=== PATIENT | male | born 1955 | race Two or more races ===

== ENCOUNTER 2021-08-26 04:32 | Emergency (ER) | payer MEDICARE, OTHER ==
[~2021-08-26] VITALS: Ht 188 cm; Wt 95.5 kg
--- NOTE | 2021-08-26 05:33 | NUR ---
Pt pink, no acute/resp distress. Bed in lowest position, wheels locked, rail 2/2 up. Call junior in reach. Will continue to monitor for acute changes and needs.
--- NOTE | 2021-08-26 06:09 | NUR ---
Blood drawn from right a/c 21G butterfly needle. Pt juan luis well remained pink. Family at bedside. Bed in lowest position. Rail 2/2 up, wheels locked. Pt pink, alert, no acute/resp distress. Handoff report to dayshift RN.
--- NOTE | 2021-08-26 06:20 | NUR ---
Report from BABATUNDE Barker.
[2021-08-26 06:27] LABS: BASOPHILS % (AUTO) 0.4 % (0-1); EOSINOPHILS # (AUTO) 0.1 X10'3 (0-0.9); HEMOGLOBIN 14.4 g/dl (14.0-17.9); LYMPHOCYTES # (AUTO) 1.1 X10'3 (1.1-4.8); LYMPHOCYTES % (AUTO) 18.5 % (21-51); MEAN CORPUSCULAR HEMOGLOBIN 30.2 PG (27.0-31.0); MEAN CORPUSCULAR HGB CONC 33.4 g/dL (33.0-36.5); MEAN CORPUSCULAR VOLUME 90.6 FL (78-98); MEAN PLATELET VOLUME 8.8 FL (7.4-10.4); MONOCYTES # (AUTO) 0.3 X10'3 (0-0.9); NEUTROPHILS # (AUTO) 4.3 X10'3 (1.8-7.7); NEUTROPHILS % (AUTO) 74.1 % (42-75); PLATELET COUNT 179 X10'3 (140-440); RED BLOOD COUNT 4.75 X10'6 (4.70-6.10); RED CELL DISTRIBUTION WIDTH 13.9 % (11.5-14.5); WHITE BLOOD COUNT 5.8 X10'3 (4.5-11.0)
--- NOTE | 2021-08-26 06:40 | NUR ---
First contact with pt. Laying in bed with family member at bedside. Pt. states that sbp is normally around 150. no distress. awaiting lab results and md gamboa.
[2021-08-26 06:52] LABS: ALANINE AMINOTRANSFERASE 22 U/L (12-78); ALBUMIN 3.6 G/DL (3.4-5.0); ALKALINE PHOSPHATASE 111 IU/L (46-116); ANION GAP 4 (8-16); ASPARTATE AMINO TRANSFERASE 20 U/L (10-37); BILIRUBIN,TOTAL 0.6 MG/DL (0.1-1.0); BLOOD UREA NITROGEN 25 MG/DL (7-18); BUN/CREATININE RATIO 20.7 (5.4-32.0); CALCIUM 8.9 MG/DL (8.5-10.1); CHLORIDE 108 MMOL/L (99-107); CREATININE 1.21 MG/DL (0.60-1.10); GLUCOSE 119 MG/DL (70-104); POTASSIUM 3.8 MMOL/L (3.5-5.1); SODIUM 142 MMOL/L (135-145); TOTAL PROTEIN 7.1 G/DL (6.4-8.2); eGFR 60 ML/MIN
--- NOTE | 2021-08-26 07:48 | NUR ---
pt provided with clothing. son will take pt home. states he does not want to go to [facility].
[2021-08-26 07:50] VITALS: BP 171/111
== END 2021-08-26 07:59 | disposition home or self-care (01) ==
LOC: ER 04:33
DX: I10 Essential (primary) hypertension (principal); R42 Dizziness and giddiness; R51.9 Headache, unspecified; R07.89 Other chest pain; G89.29 Other chronic pain
CPT/HCPCS: 36415; 71045; 80053; 84484; 85025; 93005; 99285